=== PATIENT | male | born 1950 | race Caucasian/White ===

== ENCOUNTER 2018-04-23 11:05 | Outpatient (CLI) | payer OTHER, SELFPAY ==
--- NOTE | 2018-04-23 11:03 | DI.REPORT_ITS ---
SYMPTOM/DIAGNOSIS: F/U FX LEFT ELBOW: Comparison is made with 02/19/18. There has been no change in the alignment of the fracture of the medial ulna and coronoid process. Minimal deformity of the radial head is also unchanged.
== END 2018-04-23 11:06 ==
PROVIDERS: PCP Nurse Practitioner Family; Visit Provider Physician Assistant Surgical
DX: S52.002D Unspecified fracture of upper end of left ulna, subsequent encounter for closed fracture with routine healing (principal)
CPT/HCPCS: 73080

== ENCOUNTER 2018-10-10 12:06 | Outpatient (REF) | payer OTHER, SELFPAY ==
[2018-10-10 13:38] LABS: BUN 24 mg/dL (7-18); CREATININE 1.18 mg/dL (0.70-1.30); Calcium 9.8 mg/dL (8.5-10.1); Chloride 102 mmol/L (98-107); Cholesterol 222 mg/dL (50-200); Glucose 97 mg/dL (70-100); HDL Cholesterol 97 mg/dL (40-60); LDL CHOLESTEROL 102 mg/dL (<100); Potassium 4.8 mmol/L (3.5-5.1); Sodium 140 mmol/L (136-145); Triglyceride 57 mg/dL (30-150)
== END 2018-10-10 12:26 ==
LOC: NCHCN 12:06
PROVIDERS: PCP Nurse Practitioner Family; Visit Provider Nurse Practitioner Family
DX: I10 Essential (primary) hypertension (principal); Z00.00 Encounter for general adult medical examination without abnormal findings
CPT/HCPCS: 80048; 80061; 83721

== ENCOUNTER 2019-10-21 22:47 | Outpatient (REF) | payer OTHER, SELFPAY ==
[2019-10-23 09:34] LABS: PSA, Screening 2.3 ng/mL (0.0-4.5)
== END 2019-10-21 23:07 ==
LOC: NCHCN 22:47
PROVIDERS: PCP Nurse Practitioner Family; Visit Provider Nurse Practitioner Family
DX: Z12.5 Encounter for screening for malignant neoplasm of prostate (principal)
CPT/HCPCS: 84153

== ENCOUNTER 2020-04-13 13:30 | Outpatient (REF) | payer MEDICARE, SELFPAY ==
[2020-04-13 20:56] LABS: Anion Gap 9.9 mmol/L (3-11); BUN 22 mg/dL (7-18); CO2 25.1 mmol/L (21.0-32.0); Calcium 9.3 mg/dL (8.5-10.1); Chloride 104 mmol/L (98-107); Glucose 119 mg/dL (74-106); Potassium 4.6 mmol/L (3.5-5.1); Sodium 139 mmol/L (136-145)
== END 2020-04-13 13:50 ==
LOC: NCHCN 13:30
PROVIDERS: PCP Nurse Practitioner Family; Visit Provider Family Medicine
DX: M10.9 Gout, unspecified (principal); I10 Essential (primary) hypertension
CPT/HCPCS: 80048; 84550

== ENCOUNTER 2020-10-19 12:00 | Outpatient (REF) | payer MEDICARE, SELFPAY ==
[2020-10-19 13:15] LABS: ALT 48 U/L (16-63); AST 22 U/L (15-37); Alkaline Phosphatase 69 U/L (46-116); Anion Gap 6.6 mmol/L (3-11); BUN 23 mg/dL (7-18); Bilirubin, Total 0.4 mg/dL (0.2-1.0); CO2 26.4 mmol/L (21.0-32.0); Calcium 9.5 mg/dL (8.5-10.1); Chloride 107 mmol/L (98-107); Glucose 102 mg/dL (74-106); Potassium 4.6 mmol/L (3.5-5.1); Sodium 140 mmol/L (136-145)
== END 2020-10-19 12:01 | disposition home or self-care (01) ==
LOC: NCHCN 12:00
PROVIDERS: PCP Nurse Practitioner Family; Visit Provider Nurse Practitioner Family
DX: I10 Essential (primary) hypertension (principal); R73.03 Prediabetes
CPT/HCPCS: 80053; 83036

== ENCOUNTER → 2021-07-21 08:41 | Outpatient (BNVA) | payer MEDICARE, BC, SELFPAY | PROVIDERS: PCP Nurse Practitioner Family; Referring Provider Nurse Practitioner Family; Visit Provider Student in an Organized Health Care Education/Training Program | DX: M65.332 Trigger finger, left middle finger (principal) | CPT/HCPCS: 20550; 99203; J1030 ==

== ENCOUNTER 2022-01-10 06:10 | Day surgery (SDC) | payer MEDICARE, BC, SELFPAY ==
[2022-01-10 06:30] VITALS: BP 129/92; PULSE 59; RESP 18; TEMP 36.5; O2SAT 98
--- NOTE | 2022-01-10 07:12 | W.PM.DSUDISC ---
Discharge Plan Disposition Patient Disposition: HOME Condition: Good Discharge Details Reason For Visit: Left Middle Finger Trigger Finger Attending Provider: Jose Antonio Oconnor Primary Care Provider: Nichole Lovett Home Meds and New Rx's Prescriptions: New acetaminophen 500 mg tablet 500 mg PO Q6H PRN PRN (Reason: pain) Qty: 40 3RF Continued glucosamine sulfate 2KCl 1,000 MG tablet 1,000 mg PO DAILY 0RF sildenafil [Viagra] 25 MG tablet 100 mg PO DIRECTED PRN (Reason: PRIOR TO INTERCOURSE) 0RF Label Comments: Pt reports using 6 months ago lisinopril 10 MG tablet 20 mg PO DAILY 0RF vitamin E 1,000 UNIT capsule PO DAILY 0RF meloxicam 15 MG tablet 15 mg PO DAILY 0RF Discharge Instructions Additional Instructions: Continue Meloxicam and use Tylenol for baseline pain relief. You may apply ice to the hand/finger as well. Stand Alone Forms: Anastasia Bragg Finger Release Referrals: Jose Antonio Oconnor MD [ [facility] STAFF PHYSICIAN] - Activity:: Activity as Tolerated Remove Dressings/Wound Care:: 48 hours Shower/Bathe:: 48 hours Diet:: As Tolerated Discharge Orders Discharge Orders: Discharge Order (Routine); Ordered 01/10/22 Ordered By: Jose Antonio Oconnor
[2022-01-10] MEDS: Lidocaine 1% Multi-Dose W/EPI 1/100,000 50 ML VIAL (07:22)
[2022-01-10] MEDS: Sodium Bicarbonate 50 MEQ/50 ML VIAL (07:23)
[2022-01-10 07:33] VITALS: BP 123/86; PULSE 60; RESP 16; TEMP 36.5; O2SAT 97
--- NOTE | 2022-01-11 06:03 | W.PM.OP ---
Date of service: 01/10/22 Time of Service: 07:40 Operative Note Operative Note DATE OF PROCEDURE: 01/11/22 PRE-OP DIAGNOSIS: Left Middle Finger Trigger Finger POST-OP DIAGNOSIS: same PROCEDURE: Trigger Finger Release - Left Middle Finger SURGEON: Jose Antonio Oconnor ANESTHESIA TYPE: Local By Surgeon Refer to Anesthesia Record ESTIMATED BLOOD LOSS: 0 PATHOLOGY: none sent TOURNIQUET TIME: 0 COMPLICATIONS: None Patient was transported to: same day Patient's condition: stable Indications: I have seen Barry in clinic for symptoms of a trigger finger. The catching, clicking, locking, and pain limited function. The diagnosis of trigger finger was evident. The symptoms had not responded to conservative measures. I discussed trigger finger release with the patient. I reviewed the risks of the procedure to include, but not limited to, bleeding, infection, pain, stiffness, incomplete release, damage to nerves or vessels, continued catching, recurrence. Despite these risks, the patient elected to proceed. Findings: There was a tightened A1 christopher which was released. The flexor tendons were inspected and the patient was able to move the finger without any catching, clicking, or locking. Procedure Description: Barry was greeted in the preoperative holding area where the correct side was identified and marked. The consent was reviewed with the patient and signed. All questions were answered. He was taken back to the operating room. The patient was placed into the supine position on the operating room table with the left arm on an arm board. All bony prominences were well padded. No prophylactic antibiotics were administered since this was a clean, elective hand surgical case. The left arm was then prepped with Chloraprep and draped in a standard fashion with stockinette and extremity drape. A timeout to confirm correct identity, side and site, procedure, allergies, anesthesia, and medical concerns was performed. The surgical site was marked as a longitudinal incision directly over the A1 christopher of the involved digit. This was confirmed with palpation during finger flexion. This area, overlying the metacarpal head, was then anesthetized with 1% Lidocaine. The patient tolerated this well and once the anesthetic had setup, the procedure began. A longitudinal incision was made through skin only, approximately 1cm. The deep tissues were dissected bluntly. Once the A1 christopher and flexor tendons were identified the soft tissue including neurovascular structures were retracted medially and laterally. There were no crossing structures over the A1 christopher. The proximal edge of the christopher was identified and the christopher was incised with tenotomy scissors. There was a release of the tendons once this was fully released. The tendons were then removed from the wound and inspected. Excess synovium was resected. The tendons were then returned and the patient was asked to move the finger into deep flexion and back to extension. There was no recreation of the pre-operative symptoms. The hand was then once more inspected for any A0 christopher or area of possible constriction. The wound was then irrigated and the skin was closed with a 4-0 Nylon. This was dressed with gauze and a Conform dressing. The patient tolerated the procedure well and was returned to the Same Day Surgery area in a stable condition suffering no known complication.
== END 2022-01-10 08:18 | disposition home or self-care (01) ==
PROVIDERS: PCP Nurse Practitioner Family; Visit Provider Student in an Organized Health Care Education/Training Program
PROC: (CPT 26055; principal; 2022-01-10 07:30)
DX: M65.332 Trigger finger, left middle finger (principal)
CPT/HCPCS: 26055

== ENCOUNTER → 2022-01-19 10:39 | Outpatient (BNVA) | payer MEDICARE, BC, SELFPAY | PROVIDERS: PCP Nurse Practitioner Family; Referring Provider Nurse Practitioner Family; Visit Provider Student in an Organized Health Care Education/Training Program | DX: Z47.89 Encounter for other orthopedic aftercare (principal); M65.332 Trigger finger, left middle finger ==

== ENCOUNTER 2022-06-12 15:59 | Outpatient (REF) | payer MEDICARE, BC, SELFPAY ==
[2022-06-12 15:24] LABS: Anion Gap 9.9 mmol/L (3-11); BUN 26 mg/dL (7-18); CO2 29.1 mmol/L (21.0-32.0); Calculated LDL 116 mg/dL (<100); Chloride 103 mmol/L (98-107); Cholesterol 215 mg/dL (<200); Estimated GFR 80.97 (mL/min/1.73m2); Glucose 105 mg/dL (74-106); HDL Cholesterol 91 mg/dL (40-60); Potassium 4.4 mmol/L (3.5-5.1); Sodium 142 mmol/L (136-145); Triglyceride 42 mg/dL (<150)
[2022-06-12 15:27] LABS: Hemoglobin A1C 5.8 % (<5.7)
[2022-06-12 16:01] LABS: Uric Acid 8.1 mg/dL (3.5-7.2)
== END 2022-06-12 16:00 | disposition home or self-care (01) ==
LOC: NCHCN 15:59
PROVIDERS: PCP Nurse Practitioner Family; Visit Provider Family Medicine
DX: I10 Essential (primary) hypertension (principal); R73.03 Prediabetes; M10.9 Gout, unspecified; Z13.220 Encounter for screening for lipoid disorders
CPT/HCPCS: 80048; 80061; 83036; 84550

== ENCOUNTER 2022-07-13 18:36 | Outpatient (REF) | payer MEDICARE, BC, SELFPAY ==
[2022-07-13 18:04] LABS: HCT 45.1 % (40.0-50.0); HGB 14.6 g/dL (13.5-17.5); MCHC 32.4 % (32.0-36.0); MCV 96 fL (80-95); MPV 10.3 fL (8.0-11.0); Platelet Count 302 10^3/uL (130-400); RBC 4.71 10^6/uL (4.36-5.78); RDW 12.4 % (11.8-14.1); RDW-SD 44.2 fL; WBC 10.71 10^3/uL (4.4-10.8)
[2022-07-13 18:32] LABS: Uric Acid 5.1 mg/dL (3.5-7.2)
== END 2022-07-13 18:37 | disposition home or self-care (01) ==
LOC: NCHCN 18:36
PROVIDERS: PCP Nurse Practitioner Family; Visit Provider Nurse Practitioner Family
DX: M10.09 Idiopathic gout, multiple sites (principal)
CPT/HCPCS: 85027; 84550

== ENCOUNTER 2022-07-21 13:52 | Outpatient (REF) | payer MEDICARE, BC, SELFPAY ==
--- NOTE | 2022-07-21 13:45 | SKI_PTH ---
PATIENT: Douglas Padron LOC: [facility] U#:[id number] AGE/SX: 72/M ROOM: RE07/21/[address]: Reza Garcia DO : 1950 BED: DIS: 07/21/2022 SPEC #: [id number] RECD: 07/24/22 13:07 STATUS: STEVENSON REQ #: [id number] LUMA: 07/21/22 13:[address]: Reza Garcia DEPT: Surgical Specimen RECD BY: Shabana Lange ENTERED: 07/24/22 13:07 SP TYPE: SKI OTHR DR: Nichole Lovett Tissues: 1 - SKIN BIOPSY(SHAVE/PUNCH) Procedures: SKIN LEVEL 4 Comments: [id number]
== END 2022-07-21 13:53 | disposition home or self-care (01) ==
LOC: LBN 13:52
PROVIDERS: PCP Nurse Practitioner Family; Visit Provider Otolaryngology Otolaryngology/Facial Plastic Surgery
DX: L82.1 Other seborrheic keratosis (principal)
CPT/HCPCS: 88305

== ENCOUNTER 2023-06-27 13:51 | Outpatient (REF) | payer MEDICARE, BC, SELFPAY ==
[2023-06-27 20:05] LABS: Hemoglobin A1C 5.8 % (<5.7)
[2023-06-27 20:15] LABS: ALT 63 U/L (16-63); AST 35 U/L (15-37); Albumin 4.3 g/dL (3.4-5.0); Alkaline Phosphatase 92 U/L (46-116); Anion Gap 10.6 mmol/L (3-11); BUN 25 mg/dL (7-18); Bilirubin, Total 0.3 mg/dL (0.2-1.0); CO2 23.4 mmol/L (21.0-32.0); Calcium 10.1 mg/dL (8.5-10.1); Calculated LDL 105 mg/dL (<100); Chloride 105 mmol/L (98-107); Cholesterol 210 mg/dL (<200); Estimated GFR 80.47 (mL/min/1.73m2); Glucose 107 mg/dL (74-106); HDL Cholesterol 94 mg/dL (40-60); Potassium 4.6 mmol/L (3.5-5.1); Sodium 139 mmol/L (136-145); Total Protein 7.9 g/dL (6.4-8.2); Triglyceride 55 mg/dL (<150)
[2023-06-27 20:51] LABS: Uric Acid 6.9 mg/dL (3.5-7.2)
[2023-06-28 20:43] LABS: PSA, Screening 4.5 ng/mL (<=6.5)
== END 2023-06-27 13:52 | disposition home or self-care (01) ==
LOC: NCHCN 13:51
PROVIDERS: PCP Nurse Practitioner Family; Visit Provider Nurse Practitioner Family
DX: E78.5 Hyperlipidemia, unspecified (principal); R73.03 Prediabetes; M10.9 Gout, unspecified; I10 Essential (primary) hypertension; Z12.5 Encounter for screening for malignant neoplasm of prostate
CPT/HCPCS: 80053; 80061; 84153; 83036; 84550

== ENCOUNTER 2024-06-30 21:39 | Outpatient (REF) | payer MEDICARE, BC, SELFPAY ==
[2024-06-30 19:09] LABS: Abs Immature Grans 0.03 10^3/uL (0.0-0.06); Absolute Basophil Count 0.04 10^3/uL (0.0-0.2); Absolute Eosinophil Count 0.14 10^3/uL (0.0-0.7); Absolute Lymphocyte Count 1.36 10^3/uL (1.2-3.4); Absolute Monocyte Count 0.47 10^3/uL (0.1-0.8); Absolute Neutrophil Count 4.31 10^3/uL (1.2-6.7); Basophils % 0.6 %; Eosinophils % 2.2 %; HCT 47.2 % (40.0-50.0); HGB 15.3 g/dL (13.5-17.5); Immature Grans % 0.5 %; Lymphocytes % 21.4 %; MCH 32.4 pg (27.0-33.0); MCHC 32.4 % (32.0-36.0); MCV 100 fL (80-95); MPV 10.3 fL (8.0-11.0); Monocytes % 7.4 %; Neutrophils % 67.9 %; Platelet Count 253 10^3/uL (130-400); RBC 4.72 10^6/uL (4.36-5.78); RDW 12.9 % (11.8-14.1); RDW-SD 47.7 fL; WBC 6.35 10^3/uL (4.4-10.8)
[2024-06-30 19:44] LABS: ALT 48 U/L (16-63); AST 28 U/L (15-37); Albumin 4.1 g/dL (3.4-5.0); Alkaline Phosphatase 72 U/L (46-116); Anion Gap 10.8 mmol/L (3-11); BUN 26 mg/dL (7-18); Bilirubin, Total 0.41 mg/dL (0.2-1.0); CO2 28.2 mmol/L (21.0-32.0); CREATININE 1.1 mg/dL (0.70-1.30); Calcium 10.7 mg/dL (8.5-10.1); Calculated LDL 82 mg/dL (<100); Chloride 106 mmol/L (98-107); Cholesterol 214 mg/dL (<200); Estimated GFR 71.32 (mL/min/1.73m2); Glucose 104 mg/dL (74-106); HDL Cholesterol 118 mg/dL (40-60); Sodium 145 mmol/L (136-145); Total Protein 7.4 g/dL (6.4-8.2); Triglyceride 73 mg/dL (<150)
--- OUTSIDE RECORDS SUMMARY | 2024-06-30 21:44 | XMS_ITS | Clinical Summary ---
Author Organization [facility] [place] [address] Care Team Providers Care Cnc Lathe Machine Operator Name Role Phone Monster Guido MD Primary Care Provider [phone] Social History Tobacco Use Types Packs/Day Years Used Date Smoking Tobacco: Never Assessed Sex and Gender Information Value Date Recorded Sex Assigned at Not on file Gender Identity Not on file Sexual Orientation Not on file Plan of Treatment Health Maintenance Due Date Last Done Comments CT Colonography 1950 Colonoscopy 1950 Colorectal Cancer Screening 1950 FIT DNA 1950 FIT 1950 Sigmoidoscopy (10 year) with FIT yearly 1950 Sigmoidoscopy 1950 Hepatitis C Screening 1970 Lipid Screening 1970 Tetanus/Diphtheria/Pertussis Vaccines (1 - Tdap) 05/31 Zoster vaccine (1 of 2) 2002 Advance Directive 2007 Pneumoccocal Vaccine: 65+ (1 of 1 - PCV) 2017 Covid-19 Vaccine (1 - 2022- season) 2024 Influenza (Flu) vaccine (1 o f 1 - Influenza standard series) 05/04/2024 Care Teams Cnc Lathe Machine Operator Relationship Specialty Start Date End Date Monster Guido MD PCP - General 01/16/17
--- OUTSIDE RECORDS SUMMARY | 2024-06-30 21:44 | XMS_ITS | Encounter Summary ---
Author Organization [facility] Address [address] [place] [address] Care Team Providers Care Grinder Outside Diameter Name Role Phone Mikey Corado APRN Primary Care Provider [phone] Encounter Details Date Type Department Care Team (Latest Contact Info) Description 05/14/2017 8:38 EDT - 05/14/2017 23:59 EDT Hospital Encounter [address] [address] Unknown, Provider, Discharge Disposition: Home or Self Care Social History Tobacco Use Types Packs/Day Years Used Date Smoking Tobacco: Never Assessed Sex and Gender Information Value Date Recorded Sex Assigned at Not on file Gender Identity Male 01/26/2023 16:17 EDT Sexual Orientation Not on file documented as of this encounter Discharge Disposition Disposition Code Departure Means Destination Home or Self Custodial documented in this encounter Plan of Treatment Not on file documented as of this encounter Visit Diagnoses Not on filedocumented in this encounter Care Teams Grinder Outside Diameter Relationship Specialty Start Date End Date Mikey Corado APRN [address] [place] [phone] PCP - General 06/17/13 10/16/19 documented as of this encounter
--- OUTSIDE RECORDS SUMMARY | 2024-06-30 21:44 | XMS_ITS | Encounter Summary ---
Author Organization [facility] Address [address] [place] [address] Care Team Providers Care Drafting Detailer Name Role Phone Nichole Lovett JIM Primary Care Provider [phone] Encounter Details Date Type Department Care Team (Late st Contact Info) Description 07/24/2022 Lab Requisition [facility] Pathology & Laboratory Medicine - [facility] [address] [place] [address] Reza Garcia, [address] [place], [place] [id number] Encounter for other general examination Social History Tobacco Use Types Packs/Day Years Used Date Smoking Tobacco: Never Assessed Interpersonal Safety Answer Date Record ed Physically Hurt Never 04/04/2020 Verbally Threaten Not on file 04/04/2020 Sex and Gender Information Value Date Recorded Sex Assigned at Not on file Gender Identity Male 01/26/2023 16:17 EDT Sexual Orientation Not on file documented as of this encounter Plan of Treatment Not on file documented as of this encounter Procedures Procedure Name Priority Date/Time Associated Diagnosis Comments SURGICAL PATHOLOGY Today 07/21/2022 13 :45 EST Encounter for other general examination documented in this encounter Results * SURGICAL PATHOLOGY (07/21/2022 13:45 EST) Note to Patient The following pathology results have been interpreted by your pathologist and may be available to you before your health provider has had the opportunity to review them. Please allow time for your provider to receive these results and explore management options, if applicable. 07/25/2022 10:37 [facility] Final Diagnosis A. SKIN OF FOREHEAD, RIGHT, SHAVE BIOPSY: - Seborrheic keratosis, pigmented. 07/25/2022 10:37 [facility] Attestation By the signature below, the attending physician certifies that they have 1) personally conducted a gross and/or microscopic examination of the described specimen(s), and/or personally interpreted the results of laboratory testing of the described specimen(s), and 2) personally rendered or confirmed the above diagnosis. 07/25/2022 10:37 [facility] at 1037 Clinical History Pigmented skin lesion 07/25/2022 10:37 [facility] Gross Description A. Received in formalin labelled with proper patient identification (initials S, K) and right forehead is a dusky brown circular skin shave, 0.5 cm in diameter. The margin is inked. Bisected and entirely submitted in A1. MICHELLE GREGORIO(ASCP) 07/24/2022 17:20 07/25/2022 10:37 [facility] Performing Lab [facility] 07/25/2022 10:37 [facility] Scanned Images 07/25/2022 10:37 [facility] Tissue TISSUE SPECIMEN FROM SKIN / Unknown 07/21/2022 13:45 EST 07/24/2022 17:07 EST Reza Garcia DO PATHOLOGY ORDER KEVIN [facility] [address] [place] [address] documented in this encounter Visit Diagnoses Diagnosis Encounter for other general examination documented in this encounter Care Teams Drafting Detailer Relationship Specialty Start Date End Date Nichole Lovett [place] [address] PCP - General 07/04/22 documented as of this encounter
--- OUTSIDE RECORDS SUMMARY | 2024-06-30 21:44 | XMS_ITS | Encounter Summary ---
Author Organization [facility] Address [address] [place] [address] Care Team Providers Care Truck Body Builder Apprentice Name Role Phone Mikey Corado APRN Primary Care Provider [phone] Encounter Details Date Type Department Care Team (Late st Contact Info) Description 05/14/2017 Results Only [facility] [phone] Richi Sanchez, [address] [place] [address] Social History Tobacco Use Types Packs/Day Years Used Date Smoking Tobacco: Never Assessed Sex and Gender Information Value Date Recorded Sex Assigned at Not on file Gender Identity Male 01/26/2023 16:17 EDT Sexual Orientation Not on file documented as of this encounter Plan of Treatment Not on file documented as of this encounter Procedures Procedure Name Priority Date/Time Associated Diagnosis Comments SURGICAL PATHOLOGY Routine 05/14/2017 9:45 EDT documented in this encounter Results * SURGICAL PATHOLOGY (05/14/2017 9:45 EDT) Pathology Report: SURGICAL PATHOLOGY REPORT Reports generated via electronic interface contain original data; however they are lacking the format of the original report. Caution should be taken when reading/interpret ing unformatted reports. Name: ? DOUGLAS RAINEY ? Accession #: ? [id number] ? : ? 1950 (Age: 66) ??M ? Collect Date: ? 05/14/2017 ? Location: ? [facility] ? Receive Date: ? 05/15/2017 ? Provider: RICHI SANCHEZ DO Copy to: FROILAN CADET VENEER SHEET REPAIRER ? Final Pathologic Diagnosis: SKIN OF CLAVICLE, RIGHT, SHAVE BIOPSY: - Seborrheic keratosis, pigmented. ?? Microscopic Description: The stratum corneum is thickened by compact and basketweave orthokeratosis with formation of horn pseudocysts. ??The epidermis is acanthotic with formation of broad and anastomosing trabeculae. ??The trabeculae are composed of basaloid keratinocytes with round uniform nuclei. ??The keratinocytes have a variable amount of melanin pigment. ??(Dr. Rivera)/n Document reviewed and electronically signed by: KVNG RIEVRA MD Report ??Date: 05/16/2017 17:09 By the signature above, the attending physician certifies that he/she has personally conducted a gross and/or microscopic examination of the described specimens and rendered or confirmed the above diagnosis. Specimen(s) Received: Right clavicle Clinical History: Hyperpigmented skin lesion; clinical diagnosis code: ??D49.2 Gross Description: ? Received in formalin labelled with proper patient identification (initials S, K) and right clavicle is a shave biopsy of a infante-brown, variegated, scaly macule (1.1 x 0.7 x 0.2 cm). The specimen is inked, bisected, and submitted in 1. MICHELLE Reyes (ASCP) 05/15/2017 4:22 PM End of Report [facility] 05/14/2017 9:45 EDT 05/15/2017 9:45 EDT Richi Sanchez DO PATHOLOGY ORDER KEVIN [facility] [address] [place] [address] documented in this encounter Visit Diagnoses Not on filedocumented in this encounter Care Teams Truck Body Builder Apprentice Relationship Specialty Start Date End Date Mikey Corado APRN [address] [place] [phone] PCP - General 06/17/13 10/16/19 documented as of this encounter
--- OUTSIDE RECORDS SUMMARY | 2024-06-30 21:44 | XMS_ITS | Encounter Summary ---
Author Organization [facility] Address [address] [place] [address] Care Team Providers Care Educational Paraprofessional Name Role Phone Mikey Corado HARRY Primary Care Provider [phone] Encounter Details Date Type Department Care Team (Late st Contact Info) Description 08/13/2017 Results Only [facility] [phone] Antony Sommers MD [address] [place] [phone] Social History Tobacco Use Types Packs/Day Years Used Date Smoking Tobacco: Never Assessed Sex and Gender Information Value Date Recorded Sex Assigned at Not on file Gender Identity Male 01/26/2023 16:17 EDT Sexual Orientation Not on file documented as of this encounter Plan of Treatment Not on file documented as of this encounter Procedures Procedure Name Priority Date/Time Associated Diagnosis Comments HISTAMINE PLASMA Routine 08/13/2017 14:4 8 EST MISCELLANEOUS TEST, KNOX Routine 08/13/2017 14:48 EST OYSTER, IGE Routine 08/13/2017 14:48 EST TRYPTASE, SERUM Routine 08/13/2017 14:48 EST RAST LOBSTER Routine 08/13/2017 14:48 EST RAST CLAM Routine 08/13/2017 14:48 EST RAST SHRIMP Routine 08/13/2017 14:48 EST RAST SOYBEAN Routine 08/13/2017 14:48 EST SCALLOP, IGE Routine 08/13/2017 14:48 EST RAST CRAB Routine 08/13/2017 14:48 EST documented in this encounter Results * MISCELLANEOUS TEST (08/13/2017 14:48 EST) Test Name PROSTAGLANDIN D2 PGD2 SERUM 08/13/2017 15:12 EST [facility] Comment:Corrected on 08/13 A T 1512: Previously reported as PROSTAGLANDIN Result See Pathology Scanned Report in [facility]. 08/31/2017 15:52 EST [facility] Ref Range See Pathology Scanned Report in [facility]. 08/31/2017 15:52 EST [facility] Ref Lab Testing performed by [facility] [place], [place] 08/31/2017 15:52 EST [facility] TOPOGRAPHY UNKNOWN / Unknown 08/13/2017 14:48 EST 08/13/2017 15:09 EST Antony Sommers MD CHEMISTRY & BLOOD GA S ORDERABLES Performing Organization Address City/State/[facility] Co de Phone Number [facility] [address] [place] [address] * TRYPTASE, SERUM (08/13/2017 14:48 EST) Tryptase 2.6 <11.5 ng/mL 08/15/2017 8:26 EST [facility] Comment: Performed or Referred by: [facility], [address] [place] [address], Lab Dir: Colby Hawkins II, M.D., Ph.D. BLOOD SPECIMEN / Unknown 08/13/2017 14:48 EST 08/13/2017 15:02 EST Antony Sommers MD IMMUNOLOGY AND SEROL OGY ORDERABLES Performing Organization Address City/[facility]/ZIP Co de Phone Number [facility] [address] [place] [address] * SCALLOP, IGE (08/13/2017 14:48 EST) Scallop IgE <0.35 kU/L 08/15/2017 8:26 EST [facility] Comment: (Note) Class 0 (Negative <0.35) Performed by: [facility]: [address], [place] [address], Lab Dir: Colby Hawkins II, M.D., Ph.D. BLOOD SPECIMEN / Unknown 08/13/2017 14:48 EST 08/13/2017 15:02 EST Antony Sommers MD IMMUNOLOGY AND SEROL OGY ORDERABLES Performing Organization Address City/[facility] Co de Phone Number [facility] [address] [place] [address] * RAST SOYBEAN (08/13/2017 14:48 EST) [facility] RAST Soybean <0.35 kU/L 08/15/2017 8:26 EST [facility] Comment: (Note) Class 0 (Negative <0.35) Performed by: [facility]: [address], [place] [address], Lab Dir: Colby Hawkins II, M.D., Ph.D. BLOOD SPECIMEN / Unknown 08/13/2017 14:48 EST 08/13/2017 15:02 EST Antony Sommers MD IMMUNOLOGY AND SEROL OGY ORDERABLES Performing Organization Address City/[facility]/ZIP Co de Phone Number [facility] [address] [place] [address] * RAST SHRIMP (08/13/2017 14:48 EST) RAST Shrimp 0.35 kU/L 08/15/2017 8:26 EST [facility] Comment: (Note) Class 1 (Equivocal 0.35-0.69) Performed by: [facility]: [address], [place] [address], Lab Dir: Colby Hawkins II, M.D., Ph.D. BLOOD SPECIMEN / Unknown 08/13/2017 14:48 EST 08/13/2017 15:02 EST Antony Sommers MD IMMUNOLOGY AND SEROL OGY ORDERABLES Performing Organization Address City/[facility] Co de Phone Number [facility] [address] [place] [address] * RAST LOBSTER (08/13/2017 14:48 EST) RAST Lobster <0.35 kU/L 08/15/2017 8:26 EST [facility] Comment: (Note) Class 0 (Negative <0.35) Performed by: [facility]: [address], [place] [address], Lab Dir: Colby Hawkins II, M.D., Ph.D. BLOOD SPECIMEN / Unknown 08/13/2017 14:48 EST 08/13/2017 15:02 EST Antony Sommers MD IMMUNOLOGY AND SEROL OGY ORDERABLES Performing Organization Address [facility] de Phone Number [facility] [address] [place] [address] * RAST CRAB (08/13/2017 14:48 EST) RAST Crab 0.43 kU/L 08/15/2017 8:26 EST [facility] Comment: (Note) Class 1 (Equivocal 0.35-0.69) Performed by: [facility]: [address], [place] [address], Lab Dir: Colby Hawkins II, M.D., Ph.D. BLOOD SPECIMEN / Unknown 08/13/2017 14:48 EST 08/13/2017 15:02 EST Antony Sommers MD IMMUNOLOGY AND SEROL OGY ORDERABLES Performing Organization Address City/[facility] Co de Phone Number [facility] [address] [place] [address] * RAST CLAM (08/13/2017 14:48 EST) [facility] RAST Clam <0.35 kU/L 08/15/2017 8:26 EST [facility] Comment: (Note) Class 0 (Negative <0.35) Performed by: [facility]: [facility] [address], [place] [address], Lab Dir: Colby Hawkins II, M.D., Ph.D. BLOOD SPECIMEN / Unknown 08/13/2017 14:48 EST 08/13/2017 15:02 EST Antony Sommers MD IMMUNOLOGY AND SEROL OGY ORDERABLES Performing Organization Address [facility] de Phone Number [facility] [address] [place] [address] * OYSTER, IGE (08/13/2017 14:48 EST) [facility] Oyster, IgE <0.35 kU/L 08/15/2017 8:26 EST [facility] Comment: (Note) Class 0 (Negative <0.35) Performed by: [facility]: [facility] [address], [place] [address], Lab Dir: Colby Hawkins II, M.D., Ph.D. BLOOD SPECIMEN / Unknown 08/13/2017 14:48 EST 08/13/2017 15:02 EST Antony Sommers MD IMMUNOLOGY AND SEROL OGY ORDERABLES Performing Organization Address [facility] Co de Phone Number [facility] [address] [place] [address] * (ABNORMAL) HISTAMINE PLASMA (08/13/2017 14:48 EST) [facility] Histamine Plasma 5.30(H) 0 - 1.0 ng/mL 08/17/2017 8:14 EST [facility] Comment: (Note) *This test was developed and its performance characteristics determined by [facility]. It has not been cleared or approved by the U.S. Food and Drug Administration. . Test Performed by: [facility], Interface [address] [place] [address] BLOOD SPECIMEN / Unknown 08/13/2017 14:48 EST 08/13/2017 15:02 EST Antony Sommers MD CHEMISTRY & BLOOD GA S ORDERABLES [facility] [address] [place] [address] documented in this encounter Visit Diagnoses Not on filedocumented in this encounter Care Teams Educational Paraprofessional Relationship Specialty Start Date End Date Mikey Corado APRN [address] [place] [phone] PCP - General 06/17/13 10/16/19 documented as of this encounter
--- OUTSIDE RECORDS SUMMARY | 2024-06-30 21:44 | XMS_ITS | Encounter Summary ---
Author Organization [facility] Address [address] [place] [address] Care Team Providers Care Heading And Priming Tool Setter Name Role Phone Nichole Lovett JIM Primary Care Provider [phone] Encounter Details Date Type Department Care Team (Late st Contact Info) Description 06/28/2023 Lab Requisition [facility] Pathology & Laboratory Medicine - [address] [address] Outr Resulting Lab, Provider Social History Tobacco Use Types Packs/Day Years Used Date Smoking Tobacco: Former Cigarettes 0.3 1 1 972 - 1972 Passive Smoke Exposure: Past Smokeless Tobacco: Former Chew Quit: 2013 Passive Exposure Comments:be tween and 1974 Interpersonal Safety Answer Date Record ed Physically Hurt Never 04/04/2020 Verbally Threaten Not on file 04/04/2020 Sex and Gender Information Value Date Recorded Sex Assigned at Not on file Gender Identity Male 01/26/2023 16:17 EDT Sexual Orientation Not on file documented as of this encounter Functional Status Functional Status Response Date of Assess ment Because of a physical, menta l, or emotional condition, does this person have difficulty doing errands alone such as visiting a doctor's office or shopping? No 02/07/2023 Cognitive Status Response Date of Assessm ent Because of a physical, menta l, or emotional condition, does this person have serious difficulty concentrating, remembering, or making decisions? No 02/07/2023 documented as of this encounter Plan of Treatment Not on file documented as of this encounter Procedures Procedure Name Priority Date/Time Associated Diagnosis Comments PSA TOTAL, DIAGNOSTIC Routine 06/27/2023 13:40 EDT documented in this encounter Results * PSA TOTAL, DIAGNOSTIC (06/27/2023 13:40 EDT) PSA 4.5 <=6.5 ng/mL 06/28/2023 20:38 EDT [facility] Blood VENOUS BLOOD / Unknown 06/27/2023 13:40 EDT 06/28/2023 19:35 EDT Narrative [facility] - 06/28/2023 20:38 EDT NOTE: Serum PSA concentration should not be interpreted as absolute evidence for the presence or absence of malignant disease. Assayed on CashCashPinoyaur XPT using chemiluminescent technology.??Values obtained by using different assay methods cannot be used interchangeably. Provider Outr Resulting Lab CHEMISTRY & BLOOD GAS ORDERABLES [facility] [address] [place] [address] documented in this encounter Visit Diagnoses Not on filedocumented in this encounter Care Teams Heading And Priming Tool Setter Relationship Specialty Start Date End Date Nichole Lovett FNP [place] [address] PCP - General 07/04/22 documented as of this encounter
--- OUTSIDE RECORDS SUMMARY | 2024-06-30 21:44 | XMS_ITS | Encounter Summary ---
Author Organization [facility] Address [address] [place] [address] Care Team Providers Care Respiratory Tech Name Role Phone Nichole Lovett JIM Primary Care Provider [phone] Encounter Details Date Type Department Care Team (Late st Contact Info) Description 10/22/2019 Lab Requisition [facility] Pathology & Laboratory Medicine - [address] [address] Unknown, Provider, Social History Tobacco Use Types Packs/Day Years [...] Associated Diagnosis Comments PSA TOTAL, DIAGNOSTIC Routine 10/21/2019 9:45 EST documented in this encounter Results * PSA TOTAL, DIAGNOSTIC (10/21/2019 9:45 EST) PSA 2.3 0.0 - 4.5 ng/mL 10/23/2019 9:30 EST [facility] Blood VENOUS BLOOD / Unknown 10/21/2019 9:45 EST 10/22/2019 15:40 EST Narrative [facility] - 10/23/2019 9:30 EST NOTE: Serum PSA concentration should not be interpreted as absolute evidence for the presence or absence of malignant disease. Assayed on Siemens ADVIA Centaur XPT using chemiluminescent technology.??Values obtained by using different assay methods cannot be used interchangeably. Provider Unknown CHEMISTRY & BLOOD GA S ORDERABLES [facility] [address] [place] [address] documented in this encounter Visit Diagnoses Not on filedocumented in this encounter Care Teams Respiratory Tech Relationship Specialty Start Date End Date Nichole Lovett [place] [address] [place] [address] PCP - General 07/04/22 documented as of this encounter
--- OUTSIDE RECORDS SUMMARY | 2024-06-30 21:44 | XMS_ITS | Encounter Summary ---
Author Organization [facility] Address [address] [place] [address] Care Team Providers Care Substation Inspector Name Role Phone Mikey Corado APRN Primary Care Provider [phone] Encounter Details Date Type Department Care Team (Late st Contact Info) Description 06/16/2013 Results Only [facility] Laboratory Services - [facility] ([facility] [address] [place] [id number] Douglas Howard MD [address] [place] [address] Social History Tobacco Use Types Packs/Day Years [...] Date/Time Associated Diagnosis Comments SURGICAL PATHOLOGY Routine 06/16/2013 11 :55 EDT documented in this encounter Results * SURGICAL PATHOLOGY (06/16/2013 11:55 EDT) Pathology Report: SURGICAL PATHOLOGY REPORT Reports generated via electronic interface contain original data; however they are lacking the format of the original report. Caution should be taken when reading/interpreti ng unformatted reports. Name: ? DOUGLAS RAINEY ? Accession #: ? [id number] ? : ? 1950 (Age: 63) ??M ? Collect Date: ? 06/16/2013 ? Location: ? [facility] ? Receive Date: ? 06/17/2013 ? Provider: DOUGLAS HOWARD MD Copy to: DIVYA CODY MD ? Final Pathologic Diagnosis: A. COLON, 50 CM, POLYPS, BIOPSY: - ??Fragments of tubular adenomas. B. COLON, ASCENDING, POLYP, BIOPSY: - ??Fragment of hamartomatous/infl ammatory polyp. - ??Negative for dysplasia. Document reviewed and electronically signed by: CHA EGAN MD Report ??Date: 06/18/2013 10:18 By the signature above, the attending physician certifies that he/she has personally conducted a gross and/or microscopic examination of the described specimens and rendered or confirmed the above diagnosis. Specimen(s) Received: A. ?Colon polyps 50 cm x2 B. ? Ascending colon polyp Clinical History: Screen Gross Description: A. ?Received in formalin labelled with proper patient identification (initials S, K) and colon polyp 50 cm bx x2 are two pink-ortez tissue fragments (each 0.3 x 0.3 x 0.2 cm). Entirely submitted in A1. B. ?Received in formalin labelled with proper patient identification (initials S, K) and ascending colon polyp is a single pink-ortez tissue fragment (0.5 x 0.3 x 0.2 cm). Submitted intact in B1. Mirella Garcia 06/17/2013 12:57 PM End of Report SOURAV WHITTAKER 06/16/2013 11:5 5 EDT 06/17/2013 11:55 EDT Douglas Howard MD PATHOLOGY ORDERABLE S Performing Organization Address City/State/[facility] Co de Phone Number SOURAV [facility] [address] [place] [address] documented in this encounter Visit Diagnoses Not on filedocumented in this encounter Care Teams Substation Inspector Relationship Specialty Start Date End Date Mikey Corado APRN [address] [place] [phone] PCP - General 06/17/13 10/16/19 documented as of this encounter
--- OUTSIDE RECORDS SUMMARY | 2024-06-30 21:44 | XMS_ITS | Referral Summary ---
Author Organization [facility] Address [address] [place] [address] Care Team Providers Care Alpaca Farmer Name Role Phone Nichole Lovett Primary Care Provider [phone] Allergies Active Allergy Reactions Criticality Noted Date Comments Animal Dander 02/07/2023 House Dust 02/07/2023 Ibuprofen 02/07/2023 Scallops 02/07/2023 Medications Medication Sig Dispensed Refills Start Date End Date Status lisinopriL (PRINIVIL) 40 mg tablet Take 40 mg by mouth daily. Active glucosamine/chondroiti n/C/Jairo (GLUCOSAMINE 1500 COMPLEX ORAL) Take 1 Tablet by mouth daily. Unknown dose Active allopurinoL (ZYLOPRIM) 100 mg tablet Take 50 mg by mouth daily. Active meloxicam (MOBIC) 15 mg tablet Take 15 mg by mouth as needed. Active Active Problems Patient Care Coordination No te Formatting of this note migh t be different from the original. Pt stated that Dr. Nichole Velazquez is no longer at [facility], but he still goes there to be seen/ has not been assigned new Dr. Cherelle Staples 01/26/2023 16:26 No additional problems on file Social History Tobacco Use Types Packs/Day Years Used Date Smoking Tobacco: Former Cigarettes 0.3 1 1 972 - 1972 Passive Smoke Exposure: Past Smokeless Tobacco: Former Chew Quit: 2012 Tobacco Cessation:Counseling Given: Not Answered Passive Exposure Comments:between and 1974 Interpersonal Safety Answer Date Record ed Physically Hurt Never 04/04/2020 Verbally Threaten Not on file 04/04/2020 Sex and Gender Information Value Date Recorded Sex Assigned at Not on file Gender Identity Male 01/26/2023 16:17 EDT Sexual Orientation Not on file Last Filed Vital Signs Vital Sign Reading Time Taken Comments Blood Pressure 136/83 02/07/2023 1024 EDT Pulse 63 02/07/2023 1024 EDT Temperature - - Respiratory Rate - - Oxygen Saturation - - Inhaled Oxygen Concentration - - Weight 68.9 kg (152 lb) 02/07/2023 1024 EDT Height 172 cm (5' 7.72) 02/07/2023 1024 EDT Body Mass Index 23.31 02/07/2023 1024 EDT Functional Status Functional Status Response Date of [...] concentrating, remembering, or making decisions? No 02/07/2023 Plan of Treatment Not on file Care Teams Alpaca Farmer Relationship Specialty Start Date End Date Nichole Lovett FNP [place] [address] [place] [address] PCP - General 07/04/22
--- OUTSIDE RECORDS SUMMARY | 2024-06-30 21:44 | XMS_ITS | Encounter Summary ---
Author Organization [facility] Address [address] [place] [address] Care Team Providers Care Wildlife Enforcement Major Name Role Phone Mikey Corado APRN Primary Care Provider [phone] Encounter Details Date Type Department Care Team (Late st Contact Info) Description 01/27/2015 Results Only [facility] [phone] Richi Sanchez, [address] [place] [address] Social History Tobacco Use Types Packs/Day Years [...] Date/Time Associated Diagnosis Comments SURGICAL PATHOLOGY Routine 01/27/2015 18 :26 EDT documented in this encounter Results * SURGICAL PATHOLOGY (01/27/2015 18:26 EDT) Pathology Report: SURGICAL PATHOLOGY REPORT Reports generated via electronic interface contain original data; however they are lacking the format of the original report. Caution should be taken when reading/interpret ing unformatted reports. Name: ? DOUGLAS RAINEY ? Accession #: ? [id number] ? : ? 1950 (Age: 64) ??M ? Collect Date: ? 01/27/2015 ? Location: ? [facility] ? Receive Date: ? 01/27/2015 ? Provider: RICHI SANCHEZ DO Copy to: VICTORINO CODY MD ? Final Pathologic Diagnosis: A. ??SKIN OF EPISCOPAL, LEFT, SHAVE BIOPSIES: - Seborrheic keratosis, pigmented. B. ??SKIN OF SHOULDER, RIGHT POSTERIOR, SHAVE BIOPSY: - Seborrheic keratosis, pigmented. ?? C. ??SKIN OF SHOULDER, LEFT POSTERIOR, SHAVE BIOPSY: - Melanocytic nevus, compound type, with unusual architectural features and mild cytologic atypia. - Lesion measures approximately 0.1 mm to the biopsy base. - Lesion measures approximately 1.0 mm to the nearest peripheral edge. D. ??SKIN OF BACK, RIGHT LOWER, SHAVE BIOPSY: - Seborrheic keratosis, pigmented. ?? Document reviewed and electronically signed by: MARYCRUZ MANNING MD Report ??Date: 01/29/2015 13:20 By the signature above, the attending physician certifies that he/she has personally conducted a gross and/or microscopic examination of the described specimens and rendered or confirmed the above diagnosis. Specimen(s) Received: A. ?Left scientology B. ? Right posterior shoulder C. ? Left posterior shoulder D. ? Right low back Clinical History: Irregular bordered hyperpigmented skin lesion; clinical diagnosis code: ??239.2 Gross Description: A. ?Received in formalin labelled with proper patient identification (initials S, K) and left scientology are two shave biopsies of ortez-brown mottled skin (0.6 x 0.2 x 0.1 cm and 1.1 x 0.7 x 0.1 cm). ??The larger tissue is serially sectioned and entirely submitted in A1-A2, and the smaller tissue is submitted intact in A3. B. ?Received in formalin labelled with proper patient identification (initials S, K) and right posterior shoulder is a shave biopsy of pink-ortez skin (0.6 x 0.6 x 0.1 cm). There is a central ortez-brown irregular macule that measures 0.4 x 0.3 x 0.1 cm. ??The specimen is bisected and entirely submitted in B1. C. ?Received in formalin labelled with proper patient identification (initials S, K) and left posterior shoulder is a shave biopsy of pink-ortez skin (0.8 x 0.6 x 0.1 cm). There is a central ortez-brown papule that measures 0.3 x 0.2 x 0.1 cm. ??The specimen is trisected and entirely submitted in C1. D. ?Received in formalin labelled with proper patient identification (initials S, K) and right low back is a shave biopsy of pink-ortez skin (0.6 x 0.5 x 0.1 cm). There is an eccentric ortez-brown well demarcated macule that measures 0.4 x 0.2 x 0.1 cm. ??The specimen is bisected and entirely submitted in D1. Bebeto Bermudez 01/28/2015 10:16 AM End of Report [facility] 01/27/2015 18:2 6 EDT 01/27/2015 18:26 EDT Richi Sanchez DO PATHOLOGY ORDER KEVIN [facility] [address] [place] [address] documented in this encounter Visit Diagnoses Not on filedocumented in this encounter Care Teams Wildlife Enforcement Major Relationship Specialty Start Date End Date Mikey Corado APRN [address] [place] [phone] PCP - General 10/15/13 2/13/20 documented as of this encounter
--- OUTSIDE RECORDS SUMMARY | 2024-06-30 21:44 | XMS_ITS | Encounter Summary ---
Author Organization [facility] Address [address] [place] [address] Care Team Providers Care Punch Molder Name Role Phone Mikey Corado RECOVERY ROOM RN Primary Care Provider [phone] Encounter Details Date Type Department Care Team (Latest Contact Info) Description 08/13/2017 11:58 EST - 08/13/2017 11:59 EST Hospital Encounter [address] [address] Antony Sommers MD [address] [place] [phone] Discharge Disposition: Home or Self Care Social History Tobacco Use Types Packs/Day Years Used Date Smoking Tobacco: Never Assessed Sex and Gender Information Value Date Recorded Sex Assigned at Not on file Gender Identity Male 01/26/2023 16:17 EDT Sexual Orientation Not on file documented as of this encounter Discharge Diagnoses Diagnosis T78.02XA Anaphylactic shock due to shellfish (crustaceans), initial encounter-T78.02XA[ICD-10-CM] T78.2XXA Anaphylactic shock, unspecified, initial encounter-T78.2XXA[ICD-10-CM] documented in this encounter Discharge Disposition Disposition Code Departure Means Destination Home or Self Care documented in this encounter Plan of Treatment Not on file documented as of this encounter Procedures Procedure Name Priority Date/Time Associated Diagnosis Comments PATHOLOGY - SCANNED 08/31/2017 14:28 EST documented in this encounter Results * PATHOLOGY - SCANNED (08/31/2017 14:28 EST) 08/31/2017 14:2 8 EST Scan 2 Wrapping Machine Operator LAB INFO SERVICE AN D SUPPORT & PHONE RESULT documented in this encounter Visit Diagnoses Not on filedocumented in this encounter Care Teams Punch Molder Relationship Specialty Start Date End Date Mikey Corado APRN [address] [place] [phone] PCP - General 06/17/13 10/16/19 documented as of this encounter
--- OUTSIDE RECORDS SUMMARY | 2024-06-30 21:44 | XMS_ITS | Encounter Summary ---
Author Organization [facility] Address [address] [place] [address] Care Team Providers Care Elderly Sitter Name Role Phone Mikey Corado APRN Primary Care Provider [phone] Encounter Details Date Type Department Care Team (Latest Contact Info) Description 01/27/2015 8:12 EDT - 01/27/2015 23:59 EDT Hospital Encounter [address] [address] Unknown, Provider, Discharge Disposition: Home or Self Care Social History Tobacco Use Types Packs/Day Years Used Date Smoking Tobacco: Never Assessed Sex and Gender Information Value Date Recorded Sex Assigned at Not on file Gender Identity Male 01/26/2023 16:17 EDT Sexual Orientation Not on file documented as of this encounter Discharge Disposition Disposition Code Departure Means Destination Home or Self Half[place] documented in this encounter Plan of Treatment Not on file documented as of this encounter Visit Diagnoses Not on filedocumented in this encounter Care Teams Elderly Sitter Relationship Specialty Start Date End Date Mikey Corado APRN [address] [place] [phone] PCP - General 06/17/13 10/16/19 documented as of this encounter
--- OUTSIDE RECORDS SUMMARY | 2024-06-30 21:44 | XMS_ITS | Encounter Summary ---
Author Organization [facility] [place] [address] Care Team Providers Care Clinical Support Tech Name Role Phone Macho Perez MD Primary Care Provider [phone] Encounter Details Date Type Department Care Team (Late st Contact Info) Description 04/21/2015 Orders [place] [id number] Tomas Vasquez MD [facility] [place] [address] Social History Tobacco Use Types Packs/Day Years Used Date Smoking Tobacco: Never Assessed Sex and Gender Information Value Date Recorded Sex Assigned at Not on file Gender Identity Not on file Sexual Orientation Not on file documented as of this encounter Plan of Treatment Not on file documented as of this encounter Procedures Procedure Name Priority Date/Time Associated Diagnosis Comments FILM LIBRARY STORAGE ONLY CT ABDOMEN AND PELVIS Routine 04/21/2015 11:45 AM EDT documented in this encounter Results * Film Library- Storage only CT abdomen & pelvis (04/21/2015 11:45 AM EDT) Anatomical Region Laterality Modality Abdomen, Pelvis Other 04/21/2015 11:4 5 AM EDT Narrative 04/22/2015 11:46 AM EDT This is a Non-reportable exam Procedure Note LORE, UNSIGNED REPORT - 04/22/2015 This is a Non-reportable exam Tomas Bowie MD IM FILM LIBRARY ORD ERABLES documented in this encounter Visit Diagnoses Not on filedocumented in this encounter Care Teams Clinical Support Tech Relationship Specialty Start Date End Date Macho Perez MD [facility] [address] [place] [address] PCP - General 10/29/14 01/15/17 documented as of this encounter
--- OUTSIDE RECORDS SUMMARY | 2024-06-30 21:44 | XMS_ITS | Clinical Summary ---
Author Organization [facility] Address [address] [place] [address] Care Team Providers Care Retort Forker Name Role Phone Nichole Lovett Primary Care Provider [phone] Allergies Active Allergy Reactions Criticality Noted Date [...] Dr. Nichole Velazquez is no longer at [facility], but he still goes there to [...] 16:17 EDT Sexual Orientation Not on file Obstetrics History Last Filed Vital Signs Vital Sign Reading Time Taken Comments Blood Pressure 136/83 02/07/2023 1024 EDT Pulse 63 02/07/2023 1024 EDT Temperature - - Respiratory Rate - - Oxygen Saturation - - Inhaled Oxygen Concentration - - Weight 68.9 kg (152 lb) 02/07/2023 1024 EDT Height 172 cm (5' 7.72) 02/07/2023 1024 EDT Body Mass Index 23.31 02/07/2023 1024 EDT Plan of Treatment Health Maintenance Due Date Last Done Comments Hepatitis C Screen 1950 Social Determinants Of Health (SDOH) 1950 Lipid Profile Screening (Cholesterol) 1955 Depression Screening 1964 Advance Directive 1970 Preventive Care Visit 1970 Pertussis (Adult) Immunization 1971 Tetanus (Adult) Immunization 1971 Cologuard (Colon Cancer Screening) 1997 Colonoscopy (Colon Cancer Screening) 1997 Colorectal Cancer Screening 1997 FIT Test (Colon Cancer Screening) 1997 Sigmoidoscopy (Colon Cancer Screening) 1997 Shingles Immunization (1 of 2) 2002 RSV Immunization ( o r 60+ Years) (1 - 1-dose 60+ series) 2012 Abdominal Aortic Aneurysm (AAA Screen) 2017 Pneumococcal Immunization (65+) (1 of 1 - PCV) 017 COVID-19 Vaccine ( - 2022-24 season) 2023 Fall Risk Screening 02/08/2024 02/07/2023 Influenza Immunization (Adult) (#1) 2024 Care Teams Retort Forker Relationship Specialty Start Date End Date Nichole Lovett FNP [address] [place] [address] PCP - General 07/04/22
--- OUTSIDE RECORDS SUMMARY | 2024-06-30 21:44 | XMS_ITS | Encounter Summary ---
Author Organization [facility] [place] [place] [address] Care Team Providers Care Winder Operator Name Role Phone Macho Perez MD Primary Care Provider [phone] Encounter Details Date Type Department Care Team (Late st Contact Info) Description 04/21/2015 Orders [place] [phone] Tomas Vasquez MD [facility] [place] [address] Social History Tobacco Use Types Packs/Day Years [...] Associated Diagnosis Comments FILM LIBRARY STORAGE ONLY DX LOWER EXTREMITY Routine 04/21/2015 11:44 AM EDT documented in this encounter Results * Film Library- Storage only DX Lower Extremity (04/21/2015 11:44 AM EDT) Anatomical Region Laterality Modality Other 04/21/2015 11:4 4 AM EDT Narrative 04/22/2015 11:44 AM EDT This is a Non-reportable exam Procedure Note LORE, UNSIGNED REPORT - 04/22/2015 This is a Non-reportable exam Tomas Bowie MD IM FILM LIBRARY ORD ERABLES documented in this encounter Visit Diagnoses Not on filedocumented in this encounter Care Teams Winder Operator Relationship Specialty Start Date End Date Macho Perez MD [facility] [address] [place] [address] PCP - General 10/29/14 01/15/17 documented as of this encounter
--- OUTSIDE RECORDS SUMMARY | 2024-06-30 21:44 | XMS_ITS | Encounter Summary ---
Author Organization [facility] Address [address] [place] [address] Care Team Providers Care Molybdenum Steamer Operator Name Role Phone Mikey Corado APRN Primary Care Provider [phone] Encounter Details Date Type Department Care Team (Late st Contact Info) Description 08/13/2017 Phlebotomy Only [address] [address] [place] Tower [facility]er, Outpatient Social History Tobacco Use Types Packs/Day Years Used Date Smoking Tobacco: Never Assessed Sex and Gender Information Value Date Recorded Sex Assigned at Not on file Gender Identity Male 01/26/2023 16:17 EDT Sexual Orientation Not on file documented as of this encounter Plan of Treatment Not on file documented as of this encounter Visit Diagnoses Not on filedocumented in this encounter Care Teams Molybdenum Steamer Operator Relationship Specialty Start Date End Date Mikey Corado APRN [address] [place] [phone] PCP - General 06/17/13 10/16/19 documented as of this encounter
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
[2024-07-01 19:23] LABS: PSA, Screening 4.4 ng/mL (<=6.5)
== END 2024-06-30 21:40 | disposition home or self-care (01) ==
LOC: NCHCN 21:39
PROVIDERS: Visit Provider Nurse Practitioner Family
DX: I10 Essential (primary) hypertension (principal); Z12.5 Encounter for screening for malignant neoplasm of prostate
CPT/HCPCS: 80053; 80061; 84153; 85025

== ENCOUNTER → 2024-11-27 10:33 | Outpatient (BNVA) | payer MEDICARE, BC, SELFPAY | PROVIDERS: PCP Physician Assistant; Referring Provider Physician Assistant; Visit Provider Student in an Organized Health Care Education/Training Program | DX: K40.90 Unilateral inguinal hernia, without obstruction or gangrene, not specified as recurrent | CPT/HCPCS: 99215 ==

== ENCOUNTER → 2025-03-04 09:55 | Outpatient (BNVA) | payer MEDICARE, BC, SELFPAY | PROVIDERS: PCP Physician Assistant; Referring Provider Physician Assistant; Visit Provider Surgery | DX: K40.20 Bilateral inguinal hernia, without obstruction or gangrene, not specified as recurrent (principal) | CPT/HCPCS: 99214 ==

== ENCOUNTER 2025-04-20 05:58 | Day surgery (SDC) | payer MEDICARE, BC, SELFPAY ==
[2025-04-20] VITALS (22 sets, daily range): BP systolic 89–131; BP diastolic 63–99; PULSE 53–74; RESP 14–18; TEMP 36.2–36.6; O2SAT 94–98; BMI 23.3
[2025-04-20] MEDS: Lactated Ringers 1,000 ML 80 ML IV (07:15)
--- NOTE | 2025-04-20 07:20 | W.ANESPRE ---
General Info Date of Service Date Performed: 04/20/25 Height: 5 ft 7 in Weight: 67.5 kg Body Mass Index (BMI): 23.3 Surgical Procedure: Operation Date: 04/20/25 07:40 Proposed Procedure Side Surgeon p Hernia Inguinal Laparoscopic w/Mesh Bilateral Callie Yu MD Meds Allergies and Home Medications Allergies Allergy/AdvReac Type Severity Reaction Status Date / Time ibuprofen Allergy Severe pt reports Unverified 04/20/25 06:36 rash not angioedema cat dander Allergy Intermediate sneeze, Unverified 04/20/25 06:36 runny nose, eye irritation house dust Allergy wheezing Verified 04/20/25 06:36 shellfish derived Allergy dizziness/blurred Verified 04/20/25 06:36 vision horses AdvReac sneeze, Uncoded 04/20/25 06:36 runny nose eyes Home Medication ?Medication ?Instructions ?Recorded glucosamine sulfate 2KCl 1,000 mg 1,000 mg PO DAILY 05/16/13 tablet allopurinol 100 mg tablet 100 mg PO DAILY 07/05/22 epinephrine 0.3 mg/0.3 mL 0.3 mg IM ONCE 07/05/22 injection, auto-injector lisinopril 40 mg tablet 40 mg PO DAILY 07/05/22 sildenafil 100 mg tablet 100 mg PO DAILY PRN 07/05/22 cholecalciferol (vitamin D3) PO 01/04/24 meloxicam 15 mg tablet 15 mg PO DAILY PRN 03/04/25 Current Visit Medications: Current Medications Generic Name Dose Route Start Last Admin Trade Name Freq PRN Reason Stop Dose Admin Ringer's Solution 1,000 mls @ 80 mls/hr 04/20/25 06:00 04/20/25 07:15 IV 04/20/25 23:59 80 mls/hr INFUSION SAVANNA Administration Cefazolin Sodium/Dextrose 2 gm in 50 mls @ 100 mls/hr 04/20/25 06:00 Ancef Duplex IVPB 04/20/25 23:59 PREOP SAVANNA IV Miscellaneous Supplies 1 each 04/20/25 06:00 Iv Access IV 04/20/25 23:59 DIRECTED SAVANNA Sodium Chloride 0 ml 04/20/25 06:00 Normal Saline Flush 10 Ml Syr IV 04/20/25 23:59 PRN PRN Sodium Chloride 0 ml 04/20/25 06:00 Normal Saline 10 Ml Vial IJ 04/20/25 23:59 DIRECTED PRN Sterile Water 0 ml 04/20/25 06:00 Water,Injection,Sterile 10 Ml Vial IJ 04/20/25 23:59 DIRECTED PRN PFSH Active Problems Active Problems: Problem Status Onset Code Bilateral inguinal hernia Acute K40.20 Inguinal hernia, left Acute K40.90 Seborrheic keratoses Acute L82.1 Skin cancer screening Acute Z12.83 Benign hypertension Active I10 Erectile dysfunction Active History of surgery Active Z98.89 Closed left acetabular fracture Acute S32.402A Fever Acute R50.9 Trigger finger, left middle finger Acute M65.332 Medical History Medical History Shoulder pain, right Erectile dysfunction Gout Knee pain, left H/O drug allergy Hx of allergic reaction Prediabetes Tophus Seborrheic keratosis Hyperlipidemia Shoulder pain, left Multiple nevi Hx of fracture of pelvis Neoplasm of unspecified nature of bone, soft tissue, 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) Tobacco Smoking/Tobacco Use Status: Former Tobacco Use Alcohol Alcohol Intake: current Alcohol intake frequency: 0-2 drinks per day Alcohol type: beer and hard liquor Substance Use Substance use: Rarely Substance use type: marijuana Details: Smokes marijuana once per month Vital Signs and Lab Results Vital Signs Most Recent Vital Signs in EMR: Most Recent Vital Signs Temp Pulse Resp BP Pulse Ox 36.6 C 74 16 131/99 H 95 04/20/25 06:15 04/20/25 06:15 04/20/25 06:15 04/20/25 06:15 04/20/25 06:15 Anesthesia Assessment and Plan Anesthesia History Personal History: No History of Anesthesia Complications Family History: No Family History of Anesthesia Complications Exercise Tolerance Exercise Tolerance: Metabolic Equivalents>4 Pertinent Negatives Pertinent Negatives: No Major Cardiovascular Symptoms or Complaints, No Major Pulmonary Symptoms or Complaints and No History of CVA/TIA Cardiac & Pulmonary Exam Cardiac Exam: Normal S1/S2 Heart Sounds Pulmonary Exam: Clear Bilateral Breath Sounds Implantable Cardiac Device Does patient have a Pacemaker or an ICD?: No Airway Exam Known Difficult Airway: No Mallampati Class: 1 Mouth Opening: Normal (> 3cm) Thyromental Distance: Greater than 3 cm Facial Hair: Full Doll Neck Range of Motion: Full ROM Neck Circumference: Normal Teeth Condition: Normal Dentition ASA Classification ASA Score: ASA 2 Emergency Case?: No NPO Status NPO Status: NPO Clears >2 hours, Solids >8 hours Anesthesia Plan Resuscitation Status: Full Code Anesthesia Technique: General Anesthesia Airway Planned: Endotracheal Tube Monitors Used: Standard Monitors
--- NOTE | 2025-04-20 07:38 | W.PM.HP.N ---
Date of service: 04/20/25 Time of Service: 07:38 Assessment and Plan Assessment and plan (1) Bilateral inguinal hernia: Status: Acute Assessment and plan: Discussed laparoscopic inguinal hernia repair risks, benefits, alternatives, and expectations. Discussed specifically the risks of the pain, bleeding, infection, recurrence, mesh infection and removal if needed. Postoperative expectations and weight lifting restriction were discussed. No dietary restrictions postoperatively. The patient asked good questions and verbalized understanding. Proceed as planned. History of Present Illness History of Present Illness Chief Complaint: hernia repair Narrative: Most Recent Vital Signs Temp Pulse Resp BP Pulse Ox 36.6 C 74 16 131/99 H 95 04/20/25 06:15 04/20/25 06:15 04/20/25 06:15 04/20/25 06:15 04/20/25 06:15 74yo M woith symptomatic L inguinal hernia and mildly symptomatic right inguinal hernia. Here for lap bilateral repair. no change in health or symptoms since last seen. Feels well. no major pain episodes since he was seen in office. reviewed the procedure plan and risks today. Review of Systems All systems reviewed & are unremarkable except as noted in HPI and below PFSH All Active Problems Bilateral inguinal hernia (Acute) Inguinal hernia, left (Acute) Seborrheic keratoses (Acute) Skin cancer screening (Acute) Benign hypertension (Active) Erectile dysfunction (Active) History of surgery (Active) S/P left [id number] of the knee with ruptured ACL and medial meniscus tear. Colonoscopy. 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 Grandfather Diabetes Grandfather Myocardial infarction Other Parkinson disease Social History Smoking/Tobacco Use Status: Former Tobacco Use Quit Date: 01/01/22 Smoking risk assessment performed?: Yes Alcohol Intake: current Alcohol Intake frequency: 0-2 drinks per day Alcohol type: beer and hard liquor Drug use: Rarely Substance use type: marijuana Details: Smokes marijuana once per month Housing: house Do you feel safe at home: Yes Do you feel safe in your relationship?: Yes Meds Allergies and Home Medications Allergies Allergy/AdvReac Type Severity Reaction Status Date / Time ibuprofen Allergy Severe pt reports Unverified 04/20/25 06:36 rash not angioedema cat dander Allergy Intermediate sneeze, Unverified 04/20/25 06:36 runny nose, eye irritation house dust Allergy wheezing Verified 04/20/25 06:36 shellfish derived Allergy dizziness/blurred Verified 04/20/25 06:36 vision horses AdvReac sneeze, Uncoded 04/20/25 06:36 runny nose eyes Home Medications ?Medication ?Instructions ?Recorded ?Confirmed ?Type glucosamine sulfate 2KCl 1,000 mg 1,000 mg PO DAILY 05/16/13 04/17/25 History tablet allopurinol 100 mg tablet 100 mg PO DAILY 07/05/22 04/20/25 History epinephrine 0.3 mg/0.3 mL 0.3 mg IM ONCE 07/05/22 04/20/25 History injection, auto-injector lisinopril 40 mg tablet 40 mg PO DAILY 07/05/22 04/20/25 History sildenafil 100 mg tablet 100 mg PO DAILY PRN 07/05/22 04/20/25 History cholecalciferol (vitamin D3) PO 01/04/24 03/06/25 History meloxicam 15 mg tablet 15 mg PO DAILY PRN 03/04/25 04/20/25 History Exam Narrative Exam Narrative: awake, NAD eomi, MMM midline trachea, neck is symmetric PULM: normal resp effort, equal chest rise with respiration, no wheezing audible CARDIAC: normal PMI, no jvd, regular rate, normal perfusion abdomen is nondistended. extremities are without deformity, normal movement of all four extremities speech is clear and coherent mood and affect are congruent, no focal neurological deficits skin without rash Results Last Vital Signs Temp 97.9 F 04/20/25 06:15 Pulse 74 04/20/25 06:15 Resp 16 04/20/25 06:15 BP 131/99 H 04/20/25 06:15 Pulse Ox 95 04/20/25 06:15 Time Spent Time spent with Patient: <40 minutes Time was spent: preparing to see the patient(eg.review tests) and counseling the patient
--- NOTE | 2025-04-20 07:43 | W.PM.DSUDISC ---
Date of service: 04/20/25 Discharge Plan Disposition Patient Disposition: Home Condition: Stable Discharge Details Attending Provider: Callie Yu Primary Care Provider: Reza Sheets Recommendations for Follow Up Recommended tests to be ordered by follow up provider: None from visit Home Meds and New Rx's Prescriptions: New hydrocodone-acetaminophen 5-325 mg tablet 1 tab PO Q6H PRN (Reason: pain) Qty: 10 0RF No Action cholecalciferol (vitamin D3) PO allopurinol 100 mg tablet 100 mg PO DAILY lisinopril 40 mg tablet 40 mg PO DAILY epinephrine 0.3 mg/0.3 mL auto-injector 0.3 mg IM ONCE Rx Instructions: as a single dose; may repeat once sildenafil 100 mg tablet 100 mg PO DAILY PRN Rx Instructions: administer 30 minutes to 4 hours before activity meloxicam 15 mg tablet 15 mg PO DAILY PRN glucosamine sulfate 2KCl 1,000 MG tablet 1,000 mg PO DAILY Discharge Instructions Additional Instructions: Shower in 24 hours. Wash gently over skin glue with soapy hands, rinse, pat dry. Don't peel glue or submerge incisions under water. Do not clean the glue with rubbing alcohol or any solvents beyond your regular soap/body wash and water. The glue will start to come off on its own in about 2 weeks. Ok to walk, climb stairs, and resume normal activities of daily living. Do not lift/push/pull more than 20lb for 4 weeks. Do not exercise until cleared by surgeon in office. Swelling and bruising in the groin and scrotum is normal and expected. You may even notice an eggplant-like change to the scrotum or labia on the side(s) of the repair. This is harmless and will improve over time. Elevate the scrotum with washcloth rolls while laying down, or gently ice the swollen areas for 2-4 minutes at a time if desired for comfort. Monitor yourself for constipation during recovery. Add a stool softener or laxative if no BM within 36 hours. Call or return for fever or incisional problems. Activity:: as above Shower/Bathe:: 24 hours Diet:: As Tolerated Discharge Orders Discharge Orders: Discharge Order (Routine); Ordered 04/20/25 Ordered By: Callie Yu DS: Diagnosis Discharge Diagnosis (1) Bilateral inguinal hernia: Status: Acute
[2025-04-20] MEDS: ceFAZolin 2 GM/50 ML BAG IVPB (07:48)
[2025-04-20] MEDS: Bupivacaine 0.25% Pres-Free W/EPI 30 ML VIAL (08:31)
--- NOTE | 2025-04-20 09:45 | ROE_ITS ---
Operative Note Operative Note PRE-OP DIAGNOSIS: Bilateral inguinal hernia POST-OP DIAGNOSIS: same (Bilateral inguinal hernia) PROCEDURE: Laparoscopic repair of bilateral inguinal hernia with mesh SURGEON: Callie Yu [employer]ER [employer] WORK: Rufus Etienne ANESTHESIA TYPE: Local By Surgeon and General LMA/ETT Refer to Anesthesia Record ESTIMATED BLOOD LOSS: 30 PATHOLOGY: none sent COMPLICATIONS: None Patient was transported to: PACU Patient's condition: stable Implants: Left and right sided Bard 3D Max mesh. Findings: Left side direct and indirect hernias, direct sac incarcerated. Right side indirect hernia. Procedure Description: This is a 74yo M with a symptomatic left inguinal hernia and a mildly symptomatic right inguinal hernia. He was seen in the office and scheduled for laparoscopic repair of bilateral inguinal hernia with mesh. On the day of surgery informed consent was confirmed after discussion of the procedure risks, benefits, alternatives, and expectations. The patient asked good questions and verbalized understanding of the plan. He was taken to the operating room The operating room he was placed supine on the operating table. SCDs were placed and all pressure points were padded appropriately. General anesthesia was induced. A so catheter was placed. The abdomen was clipped prepped and draped in the usual sterile fashion. Timeout was performed. Local anesthetic was infiltrated into the skin and subcutaneous tissues at each port access site. A midline vertical incision was made below the umbilicus and the subcutaneous tissue was dissected down to the level of the fascia using cautery. The fascia was retracted to the left of the midline. The anterior rectus sheath was opened sharply and muscle-splitting technique was used to retract the muscle fibers over the peritoneum. A peon clamp was used to access the preperitoneal space down to the pubic bone. A Spacemaker balloon was inserted and directed at the pubic bone. Spacemaker balloon was inflated and deflated and the port advanced into the preperitoneal space. Insufflation to 15 mmHg was accomplished with carbon dioxide gas. Laparoscopy revealed no injury to the underlying structures. Two 5 mm ports were placed in the midline under direct visualization. The left side was approached first for repair. The preperitoneal space was examined and anatomical landmarks identified. The pubic bone was cleared. The lateral wall was cleared. The hernia sac was noted high along the cord stru ctures as an indirect inguinal hernia. A second direct hernia medial to the inferior epigastric vessels was identified. The left direct hernia was incarcerated. The indirect sac was dissected bluntly from the cord structures. It was and pulled low and posterior in the preperitoneal space. Next the direct sac was reduced bluntly as well using 5mm graspers, traction and counter traction. A large sized 3D max mesh was selected for the repair. The mesh was introduced to the preperitoneal space and positioned over the direct and indirect spaces. It was tacked to the iliopubic tract at 3 points. There was adequate coverage of the direct and indirect space. There was no evidence of obturator or femoral hernia from this view. The right side was approached next. The pubic bone to the right of the midline was cleared. The lateral wall was cleared. The hernia sac was noted high along the cord structures as an indirect inguinal hernia. There was no direct, femoral or obturator hernia present. The indirect sac was dissected bluntly from the cord structures and reduced low and posterior. Air was introduced into the abdomen during this process. A large sized 3D max mesh was selected for the repair on this side as well. The mesh was introduced to the preperitoneal space and positioned over the direct and indirect spaces. It was tacked to the iliopubic tract at 3 points. There was adequate coverage of the direct and indirect space. The preperitoneal space was desufflated under direct visualization and the two meshes were noted to stay flat at the repair sites. The peritoneum was opened with metzenbaum scissors and the pneumoperitoneum released. The anterior rectus sheath was reapproximated with an 0 Vicryl [id number] stitch. The skin at each port site was closed with simple interrupted subcuticular 4-0 Monocryl. The skin was washed and dried and Dermabond was applied to the incisions. All sponge and instrument counts were correct at the end the case. So catheter was removed. The patient tolerated the procedure well. He extubated in the operating room and transferred to the recovery room in stable condition. There were no complications. Date of Procedure: 04/20/25
--- NOTE | 2025-04-20 10:50 | W.ANESPOSTOP ---
Postoperative Evaluation Date, Time and Location Date Performed: 04/20/25 Time Performed: 10:50 Patient Location: Day Surgery Unit Vital Signs Most Recent Imported Vital Signs: Most Recent Vital Signs Temp Pulse Resp BP Pulse Ox 36.2 C L 54 L 15 120/79 96 04/20/25 10:26 04/20/25 10:26 04/20/25 10:26 04/20/25 10:26 04/20/25 10:26 Pain Score Most Recent Pain Score: Most Recent Pain Score Pain Level 6 04/20/25 10:26 Assessment Mental Status: Awake (Alert & Oriented to Patient Baseline) Airway and Respiratory Function: Patent airway with normal (patient baseline) respiratory exam Cardiovascular Function: Hemodynamically Stable Hydration Status: Adequately Hydrated Nausea & Vomiting: No Nausea or Vomiting Pain: Pain is tolerable per patient Peripheral Nerve Block: Patient did not receive a nerve block
[2025-04-20] MEDS: HYDROcodone 5/Acetaminophen 325 TAB PO (11:01)
== END 2025-04-20 12:15 | disposition home or self-care (01) ==
PROVIDERS: PCP Physician Assistant; Visit Provider Surgery
PROC: (CPT 49650; principal; 2025-04-20 07:30)
DX: K40.20 Bilateral inguinal hernia, without obstruction or gangrene, not specified as recurrent (principal)
CPT/HCPCS: 49650; C1781; J0131; J0690; J1100; J2003; J2371; J2405; J2704

== ENCOUNTER → 2025-05-08 10:57 | Outpatient (BNVA) | payer MEDICARE, BC, SELFPAY | PROVIDERS: PCP Physician Assistant; Referring Provider Physician Assistant; Visit Provider Surgery | DX: Z48.815 Encounter for surgical aftercare following surgery on the digestive system (principal); K40.20 Bilateral inguinal hernia, without obstruction or gangrene, not specified as recurrent | CPT/HCPCS: 99024 ==

== ENCOUNTER 2025-07-09 12:48 | Outpatient (REF) | payer MEDICARE, BC, SELFPAY ==
[2025-07-09 16:02] LABS: Anion Gap 10.8 mmol/L (3-11); BUN 20 mg/dL (7-18); CO2 27.2 mmol/L (21.0-32.0); Calcium 9.6 mg/dL (8.5-10.1); Chloride 101 mmol/L (98-107); Cholesterol 212 mg/dL (<200); Glucose 112 mg/dL (74-106); HDL Cholesterol 106 mg/dL (>or=40); Potassium 4.4 mmol/L (3.5-5.1); Sodium 139 mmol/L (136-145)
[2025-07-09 19:57] LABS: Microalb ug/mg Crea 19.9 ug/mg Cr
[2025-07-09 22:43] LABS: PSA, Screening 4.2 ng/mL (<=6.5)
== END 2025-07-09 12:49 | disposition home or self-care (01) ==
LOC: NCHCN 12:48
PROVIDERS: PCP Physician Assistant; Visit Provider Physician Assistant
DX: Z12.5 Encounter for screening for malignant neoplasm of prostate (principal); E78.5 Hyperlipidemia, unspecified; I10 Essential (primary) hypertension
CPT/HCPCS: 80048; 80061; 84153; 82043; 82570

== ENCOUNTER → 2025-08-05 10:57 | Outpatient (BNVA) | payer MEDICARE, BC, SELFPAY | PROVIDERS: PCP Physician Assistant; Referring Provider Physician Assistant; Visit Provider Surgery | DX: Z98.890 Other specified postprocedural states (principal); Z87.19 Personal history of other diseases of the digestive system | CPT/HCPCS: 99212 ==